=== PATIENT | female | born 1985 | race Caucasian/White ===

== ENCOUNTER 2019-12-31 12:34 | Outpatient (RCR) | payer OTHER, SELFPAY ==
[2019-12-17 17:07] VITALS: BP 121/63; PULSE 80
[2019-12-21 13:21] VITALS: BP 122/57; PULSE 76
[2019-12-28 08:06] VITALS: BP 122/64; PULSE 78
[2019-12-31 13:05] VITALS: BP 125/68; PULSE 90
== END 2020-01-04 08:03 | disposition home or self-care (01) ==
LOC: ANHOBOP 12:34
PROVIDERS: Family Provider Obstetrics & Gynecology; Visit Provider Obstetrics & Gynecology
DX: O24.419 Gestational diabetes mellitus in pregnancy, unspecified control (principal); Z3A.34 34 weeks gestation of pregnancy; Z3A.35 35 weeks gestation of pregnancy; Z3A.36 36 weeks gestation of pregnancy
CPT/HCPCS: 59025

== ENCOUNTER 2020-01-02 10:40 | Outpatient (CLI) | payer OTHER, SELFPAY ==
[2020-01-02 10:58] LABS: Hematocrit 37.6 % (37.0-47.0); Hemoglobin 12.6 g/dL (12.0-15.0); Mean Corpuscular HGB Conc 33.5 g/dl (32-36); Mean Corpuscular Hemoglobin 31.5 pg (26-34); Mean Platelet Volume 10.6 fl (7.4-10.4); Platelet Count Result 303 k/mm3 (150-375); Red Cell Distribution Width 12.6 % (11.5-14.5)
[2020-01-04 06:53] LABS: Rapid Plasma Reagin Non-Reactive (NonReactive)
== END 2020-01-02 10:41 | disposition home or self-care (01) ==
PROVIDERS: Visit Provider Obstetrics & Gynecology
DX: Z01.818 Encounter for other preprocedural examination (principal)
CPT/HCPCS: 36415; 85027; 86592; 86850; 86900; 86901

== ENCOUNTER 2020-01-04 05:40 | Inpatient (IN) | payer OTHER, SELFPAY ==
[2020-01-04] VITALS (48 sets, daily range): BP systolic 64–127; BP diastolic 39–78; PULSE 59–92; RESP 16–20; TEMP 36.3–37.5; O2SAT 98–100; BMI 34.5
[2020-01-04] MEDS: LACTATED RINGERS 1,000 ML 125 ML IV CONT (06:20)
--- NOTE | 2020-01-04 06:38 | LDADM ---
This patient, Maria R Moraes, was admitted to Labor/Delivery/Recovery 120 on 01/04/20 at 05:40. Plans for labor, pain management and were discussed with patient. Patient/family oriented to hospital policies and general routines including ID bracelet, bed and alarms, visiting hours, pain management, procedures, bathroom and other care routines, personal items, smoking policy, room service/diet and guest tray routines, infant security routines, and visiting hours. Patient/Family are encouraged to report perceived risks to care and to ask questions if they do not understand what they are told or what they should do. See OBIX for further documentation.
[2020-01-04 06:49] LABS: Glucose Point of Care 88 (65-105)
[2020-01-04] MEDS: LACTATED RINGERS 1,000 ML 999 ML IV CONT (07:09)
--- NOTE | 2020-01-04 07:09 | WPDANESEPPF ---
Anes - Initial Pre Proc Eval Procedure: Operation Date: 01/04/20 07:30 Proposed Procedures p Repeat Section with Bilateral Tubal Ligation - Frankie Benedict MD Date/Time: 01/04/20 07:09 Surgeon: Frankie Benedict MD Pre Op Diagnosis: C section Patient Data Age: 34 Gender: F Height: 5 ft 8 in Weight: 103 kg Last Vital Signs Temp 37.5 C 01/04/20 06:45 Pulse 78 01/04/20 06:31 BP 110/64 01/04/20 06:31 Allergies Allergy/AdvReac Type Severity Reaction Status Date / Time adhesive Allergy Intermediate RASH Verified 05/04/18 18:21 adhesive tape Allergy Mild Verified 05/04/18 18:21 nabumetone Allergy Mild FACIAL Verified 05/04/18 18:21 SWELLING Home Medications Medication Instructions Recorded Confirmed Type PNV cmb#95-ferrous fumarate-FA 1 tablet PO DAILY 12/31/19 12/31/19 History [] clindamycin HCl 300 mg PO Q6H 12/31/19 12/31/19 History glyburide 5 mg PO DAILY 12/31/19 12/31/19 History Laboratory Tests 01/04/20 06:30 POC Capillary Glucose 88 mg/dl mg/dl (65-105) Patient hx anesthesia problems: post op nausea/vomiting Family hx anesthesia problems: none PMFSH Past Medical History Medical History (Updated 01/04/20 @ 07:09 by Carlos Manuel Avila MD) Diabetes Family History Family History Mother Hypertension Father Diabetes mellitus Social History Social History Smoking packs per day: 1 Smoking cigarettes per day: 20.0 Years smoked: 15 Smoking pack-years: 15.00 Smoking status: Current every day smoker Tobacco type: cigarettes Second hand tobacco smoke exposure: Yes Substance use: never Gender identity (if verbalized by the patient): Female Spiritual care concerns: No Anes - Eval Final PreProcedure Day of Procedure 01/04/20 07:09 Patient weight: obese Heart: regular rate and rhythm Lungs: decreased breath sounds Airway: Mallampati scale class II Neurological: alert and oriented Last oral intake: >/= 8 hours ASA classification: III Emergent: no Anesthetic plan: proceed Anesthesia type and monitoring: regional spinal and standard monitoring Informed Consent: The patient's anesthetic plan and its attendant risks and benefits were discussed with the patient/family/POA. Questions were solicited and answers provided to the satisfaction of the patient/family/POA.
--- NOTE | 2020-01-04 07:26 | P.HP_ITS ---
H&P: HPI History of Present Illness Chief complaint: C section Narrative: Maria R Moraes is a 34 year old female 003 presents for repeat delivery. Also desires tubal ligation for permanent sterilization. care uncomplicated though she does have trisomy 21 infant and growth restriction both which have been comanaged with Maternal- Medicine at [facility]. Last Dopplers were performed Saturday did show some resistance but no need to intervene at that time. Review of Systems Review of Systems: All systems reviewed & are unremarkable except as noted in HPI and below PMFSH Past Medical History Medical History (Updated 01/04/20 @ 07:29 by Frankie Benedict MD) Diabetes Family History Family History Mother Hypertension Father Diabetes mellitus Social History Social History Smoking packs per day: 1 Smoking cigarettes per day: 20.0 Years smoked: 15 Smoking pack-years: 15.00 Smoking status: Current every day smoker Tobacco type: cigarettes Second hand tobacco smoke exposure: Yes Substance use: never Gender identity (if verbalized by the patient): Female Spiritual care concerns: No Meds Home Medications and Allergies Home Medications Medication Instructions Recorded Confirmed Type PNV cmb#95-ferrous fumarate-FA 1 tablet PO DAILY 12/31/19 12/31/19 History [] clindamycin HCl 300 mg PO Q6H 12/31/19 12/31/19 History glyburide 5 mg PO DAILY 12/31/19 12/31/19 History Allergies Allergy/AdvReac Type Severity Reaction Status Date / Time adhesive Allergy Intermediate RASH Verified 05/04/18 18:21 adhesive tape Allergy Mild Verified 05/04/18 18:21 nabumetone Allergy Mild FACIAL Verified 05/04/18 18:21 SWELLING Vital Signs Vital Signs - 24 hr 01/04/20 06:22 01/04/20 06:31 01/04/20 06:45 Temperature 37.5 C Pulse Rate 80 78 Blood Pressure 123/78 110/64 Exam Const: General: no acute distress Resp: Auscultation: clear to auscultation bilaterally Cardio: Rate: regular rate Rhythm: regular rhythm GI: Other: Fundal height 36cm. heart tones 130 and reactive. Assessment and Plan Assessment and plan (1) Term : Code(s): Z34.90 - Encounter for supervision of normal , unspecified, unspecified trimester Status: Acute (2) Encounter for sterilization: Code(s): Z30.2 - Encounter for sterilization Status: Acute Additional Plan Proceed with repeat low transverse section as well as bilateral tubal ligation.
[2020-01-04] MEDS: ceFAZolin 2 GM/D5W 50 ML 2 GM/50 ML BAG IVPB (07:32)
--- NOTE | 2020-01-04 08:37 | PM.OBPRVD ---
OB - Delivery Note Procedure Procedure: Procedures Operation Date: 01/04/20 07:30 Actual Procedures Side Surgeon p Section Frankie Benedict MD events: Gestational Diabetes and Placental Insufficiency Route of delivery: other (BTL) Specimen: Yes Estimated blood loss (mL): 550 Anesthesia type: Spinal Disposition: PACU Complications: During the procedure there was a moderate amount of blood-tinged fluid which was draining in the cul-de-sac. To be certain that this was not bladder injury with drainage of blood-tinged urine the bladder was backfilled with diet field fluid which did show good expansion of the bladder with no spillage. Bladder was then drained. Narrative: Patient was prepped and draped in usual manner for this procedure. Pfannenstiel incision was made carried down to the fascia extended bilaterally the length of the skin incision. Superiorly and inferiorly dissected away from the rectus muscles which were then bluntly dissected and the peritoneum was entered. Bladder flap was developed without difficulty. Uterus scored with clear fluid noted extended bilaterally the length of the lower segment and vertex was delivered. Rest of baby was delivered without difficulty. Cord was clamped and cut baby was passed off the operative field. Placenta removed manually and cavity was cleared of membranes and clots. Uterine incision was closed using 0 Monocryl running interlocking manner with good approximation hemostasis noted. The bilaterally fallopian tubes were grasped and doubly ligated using 0 plain suture. Specimen of tube was removed bilaterally. Stumps were hemostatic and intact. Uterus was turned the abdomen and again noted to be hemostatic and intact. Gutters were cleared of serosanguineous fluid and clots. This point the oozing as noted above was noted and about bladder was back filled. Once this was complete the fascia was approximated using 0 Vicryl from left angle midline right able midline subcutaneous tissues approximated 0 plain suture and skin was approximated using wide jon. Patient are procedure well sent to recovery room in stable condition. [place] Baby Weeks of gestation at delivery: 37 gender: Female Weight (pounds): 6 Weight (ounces): 0 score one minute: 8 score five minutes: 9
[2020-01-04] MEDS: MORPHINE SULFATE 2 MG/ML INJ 3 MG IV PUSH ×3 (09:04→10:39)
[2020-01-04] MEDS: OXYTOCIN 30 UNITS/NS 500 ML 30 UNITS/500 ML BAG 125 UNITS IV CONT (09:19)
--- NOTE | 2020-01-04 11:07 | PC.NURSE ---
Patient transferred to post room # 282 via stretcher. Support person present. Oriented to unit, room, information board, rooming in, admission packet and security measures. Patient verbalizes understanding.
--- NOTE | 2020-01-04 11:50 | PC.NURSE ---
Mother called out for assist with feeding. Mother states she attempted with other children without success. Reviewed infant feeding cues, frequencies, duration of feedings, feeding elimination flow sheet, and signs of adequate intake. Demonstrated stimulation techniques to wake infant for feeding. Assisted with to breast. Reviewed positioning/alignment in cross cradle, holding breast in U hold and guided asymmetrical latch on. Discussed rational for each. Infant was able to latch correctly. Infant nursed eagerly, with steady draws and frequent swallowing noted. Reviewed signs of a correct latch, effective nursing and suck swallow ratio. Infant was on and off several times, would eagerly latch. Nipple care reviewed. Instructed mother to call out for RN assistance if she is unable to latch for feeding or she has discomfort with nursing. Instructed feeding should be initiated three hours from start of last feeding or if feeding cues are noted before. Mother voiced understanding of information shared.
[2020-01-04] MEDS: CLINDAMYCIN HCL 150 MG CAP 300 MG PO ×3 (14:01→23:23)
[2020-01-04] MEDS: KETOROLAC 30 MG/ML VIAL (*BKC) IV PUSH (14:03)
[2020-01-04] MEDS: SIMETHICONE 80 MG TAB.CHEW PO ×2 (14:03→16:57)
[2020-01-04] MEDS: DEXTROSE 5%/0.45% SOD CHL 1,000 ML 125 ML IV CONT (14:03)
[2020-01-04] MEDS: DOCUSATE SODIUM 100 MG CAPSULE PO (16:56)
[2020-01-04] MEDS: IBUPROFEN 600 MG TABLET PO (21:50)
[2020-01-05] MEDS: IBUPROFEN 600 MG TABLET PO ×3 (03:48→19:09)
[2020-01-05 04:30] VITALS: BP 96/63; PULSE 79; RESP 18; TEMP 36.9
[2020-01-05 05:28] LABS: Basophils Percent Auto 0.3 % (0.2-1.2); Eosinophils Absolute Auto 0.1 K/mm3 (0-0.3); Eosinophils Percent Auto 1.3 % (0-4.4); Hematocrit 31.9 % (37.0-47.0); Hemoglobin 10.6 g/dL (12.0-15.0); Immature Granulocyte Absolute 0.05 K/mm3 (0.00-0.031); Immature Granulocyte Percent A 0.5 % (0-0.5); Lymphocytes Absolute Auto 1.21 K/mm3 (0.9-3.2); Lymphocytes Percent Auto 12.1 % (18.3-44.2); Mean Corpuscular HGB Conc 33.2 g/dl (32-36); Mean Corpuscular Hemoglobin 31.3 pg (26-34); Mean Corpuscular Volume 94.1 fl (80-100); Mean Platelet Volume 11.1 fl (7.4-10.4); Monocytes Absolute Auto 0.7 K/mm3 (0.1-0.6); Monocytes Percent Auto 6.9 % (2.6-8.5); Neutrophils Absolute Auto 7.9 K/mm3 (1.3-6.7); Neutrophils Percent Auto 78.9 % (45.5-73.1); Platelet Count Result 280 k/mm3 (150-375); Red Blood Count 3.39 M/mm3 (4.2-5.4)
[2020-01-05] MEDS: MULTIVIT/MIN/PREN/FOL AC/IRON TABLET 1 TAB PO (07:12)
[2020-01-05] MEDS: CLINDAMYCIN HCL 150 MG CAP 300 MG PO ×3 (07:12→19:09)
[2020-01-05] MEDS: DOCUSATE SODIUM 100 MG CAPSULE PO ×2 (07:12→19:10)
[2020-01-05 07:35] VITALS: BP 108/58; PULSE 71; RESP 18; TEMP 36.8; O2SAT 98
--- NOTE | 2020-01-05 11:39 | PM.OBDSVD ---
DS: Diagnosis Admitting Diagnosis Admitting Diagnosis: Encounter for supervision of normal , unspecified, unspecified trimester OB - DS: Summary OB Procedures : None OB Procedures Intrapartum: and Tubal ligation OB Procedures: : None Peripartum Data Procedures: Procedures Operation Date: 01/04/20 07:30 Actual Procedures Side Surgeon p Section Frankie Benedict MD Time Spent with Patient Time attestation: Total time spent providing and/or coordinating discharge services: DS: Data Data Completed and Pending Pending studies at discharge: Pending at discharge 01/04/20 07:49 Surgical [PTH] Routine Surgical [PTH] Routine Labs on day of discharge: Labs from last 24 hours 01/05/20 05:07 WBC 10.0 RBC 3.39 L Hgb 10.6 L Hct 31.9 L MCV 94.1 MCH 31.3 MCHC 33.2 RDW 13.0 Plt Count 280 MPV 11.1 H Immature Gran % (Auto) 0.5 Neut % (Auto) 78.9 H Lymph % (Auto) 12.1 L [place] % (Auto) 6.9 Eos % (Auto) 1.3 Baso % (Auto) 0.3 Lymph # (Auto) 1.21 [place] # (Auto) 0.7 H Eos # (Auto) 0.1 Baso # (Auto) 0.0 Abs Immat Gran (auto) 0.05 H Absolute Neuts (auto) 7.9 H Absolute Nucleated RBC 0.0 Nucleated RBC % 0.0 Discharge Plan Discharge Discharging Clinician: Frankie Benedict Patient Disposition: Home, Self-Care Activity: as tolerated Diet: as tolerated Wound Care Instructions: incision open to air Discharge Instructions: office saturday for staple removal Patient Instructions: Antibiotic Form Stand Alone Forms: General Discharge Information Follow-up/Referrals: Frankie Benedict MD [Physician] - 3 Weeks Discharge Medications: New hydrocodone-acetaminophen 5-325 mg Tablet 1 tab PO Q3H PRN (Reason: Moderate Pain (4-6)) Qty: 20 RF: 0 ibuprofen 600 mg Tablet 600 mg PO Q6H PRN (Reason: Cramping) Qty: 30 RF: 0 Continued clindamycin HCl 300 mg Capsule 300 mg PO Q6H RF: 0 PNV cmb#95-ferrous fumarate-FA [] 28 mg iron- 800 mcg Tablet 1 tablet PO DAILY RF: 0 Discontinued glyburide 5 mg Tablet 5 mg PO DAILY RF: 0 Date of admission: 01/04/20 05:40 Primary Care Provider: UNKNOWN,DOCTOR Admitting Provider: Frankie Benedict Attending physician on admission: Frankie Benedict
--- NOTE | 2020-01-05 12:57 | WPDANLDNPN2 ---
Anes-Prog Note L&D-Neuraxial Date/Time: 01/05/20 12:57 Neuraxial medications: intrathecal PF morphine Opiod-related complaints: none Patient feedback: Patient satisfied with post-operative pain management.
--- NOTE | 2020-01-05 12:58 | WPDANLDPN2 ---
Anes-Prog Note L&D Date/Time: 01/05/20 12:58 Comfortable throughout: section Neuraxial method: spinal Epidural/Spinal procedure site: clean & non-tender Neuro status: Neuro function grossly intact. Cardiovascular status: normal Respiratory status: normal Airway patency: baseline Mental status: baseline Post-Op hydration status: normal Vital Signs: Last Vital Signs Temp 36.8 C 01/05/20 07:35 Pulse 71 01/05/20 07:35 Resp 18 01/05/20 07:35 BP 108/58 L 01/05/20 07:35 Pulse Ox 98 01/05/20 07:35 I/O: Intake & Output 01/04/20 01/05/20 01/05/20 23:59 07:59 15:59 Intake Total 1870 420 Output Total 540 1900 Balance 1330 -1480 Post-procedural complaints: none Patient feedback: Patient satisfied with anesthetic care.
[2020-01-05 19:40] VITALS: BP 121/73; PULSE 80; RESP 12; TEMP 37.2
[2020-01-06] MEDS: CLINDAMYCIN HCL 150 MG CAP 300 MG PO ×3 (01:31→12:28)
[2020-01-06] MEDS: IBUPROFEN 600 MG TABLET PO ×2 (01:31→09:00)
[2020-01-06 08:05] VITALS: BP 116/64; PULSE 82; RESP 18; TEMP 37.3; O2SAT 99
[2020-01-06] MEDS: SIMETHICONE 80 MG TAB.CHEW PO ×2 (08:59→12:29)
[2020-01-06] MEDS: DOCUSATE SODIUM 100 MG CAPSULE PO (08:59)
[2020-01-06 09:00] VITALS: PULSE 82; RESP 18; O2SAT 99
[2020-01-06] MEDS: MULTIVIT/MIN/PREN/FOL AC/IRON TABLET 1 TAB PO (09:00)
--- NOTE | 2020-01-06 09:00 | PC.NURSE ---
PT introductions made and plan of care discussed per post op c section, pain management, breast feeding, daily care activities and pending discharge to home. PT verbalized understanding of such care.
--- NOTE | 2020-01-06 10:40 | PC.NURSE ---
Consult with pt., mother reports she is putting infant to breast for most feedings and will then supplement. Mother's plans are to breast and formula feed once home. Mother will begin taking medications for arthritis within a few weeks and both medications are not recommended for . Mother is able to independently latch infant with appropriate positioning/alignment. She denies any nipple discomfort, is feeding as required and waking infant to feed if needed. Infant has had several effective feedings followed with supplementation in the past 24 hours, and is currently meeting outcomes for weight, output, jaundice and feeding frequencies. Mother states she feels confident to continue her current feeding plan of breast and bottle at home. Reviewed transition to breast milk, signs of adequate intake, and engorgement/relief. Instructed to call ICP if intake/output less than required. Reviewed regular medications mother is taking. Information provided per Padmini. Reviewed community resources on the [facility] website and in the Mom/Baby guide. Information on outpatient services provided. Mother has no further questions at this time.
[2020-01-06] MEDS: TETANUS,DIPHTHERIA,AC PERTUSSIS ADULT (0.5 ML) BOOSTRIX IM (12:29)
--- NOTE | 2020-01-06 13:00 | PC.NURSE ---
Pt received discharge instructed per protocol. PT verbalized understanding of such instructed.
--- NOTE | 2020-01-06 13:37 | PC.NURSE ---
PT discharged to home ambulatory accompanied by significant other and to waiting car. Follow up appointments confirmed.
[2020-01-08 10:11] VITALS: BP 129/75; PULSE 85; RESP 20; TEMP 37.1; O2SAT 98
--- NOTE | 2020-01-12 09:04 | PM.OBDSVD ---
DS: Diagnosis Admitting Diagnosis Admitting Diagnosis: Encounter for supervision of normal , unspecified, third trimester OB - DS: Summary OB Procedures : Amniocentesis, NST and Ultrasound OB Procedures Intrapartum: OB Procedures: : None Peripartum Data Procedures: Procedures Operation Date: 01/04/20 07:30 Actual Procedures Side Surgeon p Section Frankie Benedict MD Time Spent with Patient Time attestation: Total time spent providing and/or coordinating discharge services: DS: Data Data Completed and Pending Completed studies during hospitalization: Pending at discharge 01/04/20 07:49 Surgical [PTH] Routine Surgical [PTH] Routine Discharge Plan Discharge Consulting providers: Carlos Manuel Avila Discharging Clinician: Frankie Benedict Patient Disposition: Home, Self-Care Activity: as tolerated Diet: as tolerated Wound Care Instructions: incision open to air Discharge Instructions: Education: Mom and Baby Guide Given to: Mother Follow-Up: Call your delivering provider's office for an appointment to be seen in: 3 weeks Mom and baby should come to the [facility] for the follow-up appointment. Appointment Date/Time: January 08, 2020 at 10:00 am What to expect at your follow-up visit: Blood Pressure Check Call [phone] if you are unable to keep your appointment time. BREAST CARE: 1. Wear a snug supportive bra. 2. For engorgement discomfort: Breast Feeding: A. Apply warm moist washcloths B. Express milk as needed to relieve engorgement C. Wear loose clothing Bottle Feeding: A. May apply ice packs 3. For sore nipples: A. Identify correct latch-on B. Apply warm moist washcloths before and after nursing C. Air dry nipples after nursing D. May apply Lansinoh cream to nipples ABDOMINAL INCISION: (if applicable) 1. Allow incision to air dry 2. Do NOT use lotions for powders on your incision 3. When showering, allow soap and water to run over the incision, but do not wash incision PERINEAL CARE: 1. Until bleeding stops, use your delores bottle after urinating 2. Change your pad frequently throughout the day 3.. No tub baths until seen by your physician - You may shower ACTIVITY: 1. Rest as much as possible. 2. Do not exercise or lift anything heavier than your baby (such as laundry or other children.) 3. Avoid stairs or driving as much as possible. 4. Do not put anything into the vagina. No douching, tampons, or sexual activity until seen by physician. NOTIFY PHYSICIAN IF YOU HAVE ANY QUESTIONS OR IF ANY OF THE FOLLOWING SYMPTOMS OCCUR: 1. If your incision becomes red, swollen, or more painful than what you have experienced in the hospital. 2. If your vaginal bleeding becomes foul smelling. 3. If your vaginal bleeding becomes more heavy than a period or if your bleeding changes from pink to bright red. However, you may pass an occasional walnut-sized clot once or twice for the first week . 4. If you experience a sharp, shooting pain in you calves. 5. If you discover a hard, reddened area on your breast or if you experience flu-like symptoms. 6. Call for temp 100.4 or greater DIET: 1. Eat regular, well-balanced meals. 2. Drink plenty of fluids daily. If , drink to thirst.office saturday for staple removal Patient Instructions: Antibiotic Form Stand Alone Forms: General Discharge Information Follow-up/Referrals: Frankie Benedict MD [Physician] - 3 Weeks Discharge Medications: New hydrocodone-acetaminophen 5-325 mg Tablet 1 tab PO Q3H PRN (Reason: Moderate Pain (4-6)) Qty: 20 RF: 0 ibuprofen 600 mg Tablet 600 mg PO Q6H PRN (Reason: Cramping) Qty: 30 RF: 0 Continued clindamycin HCl 300 mg Capsule 300 mg PO Q6H RF: 0 PNV cmb#95-ferrous fumarate-FA [
== END 2020-01-06 13:37 | disposition home or self-care (01) | DRG 540 ==
LOC: ANHLDR 05:47 → ANHOB2 11:11
PROVIDERS: Admitting Provider Obstetrics & Gynecology; Visit Provider Obstetrics & Gynecology
PROC: 10D00Z1 Extraction of Products of Conception, Low, Open Approach (ICD-10-PCS; CPT 59514; principal; 2020-01-04 07:30)
DX: O34.211 Maternal care for low transverse scar from previous cesarean delivery (principal); Z3A.37 37 weeks gestation of pregnancy; Z37.0 Single live birth; Z30.2 Encounter for sterilization; Z23 Encounter for immunization; F17.210 Nicotine dependence, cigarettes, uncomplicated; O99.333 Smoking (tobacco) complicating pregnancy, third trimester; O24.429 Gestational diabetes mellitus in childbirth, unspecified control; O99.214 Obesity complicating childbirth; E66.9 Obesity, unspecified
CPT/HCPCS: 36415; 85025; 88302; 88307; 90715; A9270; J0690; J1885; J2001; J2270; J2274; J2405; J2590; J7030; J7120; Q9968

== ENCOUNTER 2020-12-21 10:38 | Outpatient (CLI) | payer OTHER, SELFPAY ==
--- NOTE | ~2020-12-21 | MM_ITS ---
EXAMINATION: MM screening jeromy BI w morales HISTORY: Screening TECHNIQUE: Craniocaudal and mediolateral oblique 3-D tomosynthesis images were obtained and synthetic 2-D images were generated. CAD analysis was submitted and interpreted. COMPARISON: No prior mammogram is available for comparison at this institution. BREAST PARENCHYMAL COMPOSITION: There are scattered areas of fibroglandular density. FINDINGS: There is a benign-appearing radiolucent mass central aspect of the right breast. There is n o evidence of suspicious mass, calcification, or architectural distortion to suggest malignancy in ei ther breast. There has been no suspicious interval change. IMPRESSION: 1. No mammographic evidence of malignancy. 2. Recommend routine screening mammography in one year. BI-RADS Category 2: Benign finding(s). Reviewed, dictated and finalized at location A.
== END 2020-12-21 10:39 | disposition home or self-care (01) ==
LOC: ANHIMG 10:41
PROVIDERS: PCP Obstetrics & Gynecology; Visit Provider Obstetrics & Gynecology
DX: Z12.31 Encounter for screening mammogram for malignant neoplasm of breast (principal)
CPT/HCPCS: 77063; 77067

== ENCOUNTER 2022-11-20 12:51 | Outpatient (CLI) | payer OTHER, SELFPAY ==
[2022-11-20 13:18] LABS: Hematocrit 40.9 % (37.0-47.0); Hemoglobin 13.9 g/dL (12.0-15.0); Mean Corpuscular Hemoglobin 32.2 pg (26-34); Mean Corpuscular Volume 94.7 fl (80-100); Mean Platelet Volume 10.3 fl (7.4-10.4); Platelet Count Result 293 k/mm3 (150-375); Red Blood Count 4.32 M/mm3 (4.2-5.4); Red Cell Distribution Width 12.4 % (11.5-14.5); White Blood Count 8.4 K/mm3 (4.5-10.0)
== END 2022-11-20 12:52 | disposition home or self-care (01) ==
PROVIDERS: Visit Provider Obstetrics & Gynecology
DX: N92.1 Excessive and frequent menstruation with irregular cycle (principal); Z01.818 Encounter for other preprocedural examination
CPT/HCPCS: 36415; 85027

== ENCOUNTER 2022-11-22 00:23 | Day surgery (SDC) | payer OTHER, SELFPAY ==
[2022-11-12 09:48] VITALS: BMI 31.1
--- NOTE | 2022-11-12 10:04 | PC.NURSE ---
Report to the Outpatient Waiting Room, entrance under the green pavilion located off [facility], at time 0900 on date _11/22/22. Planned Procedure Time: 1100. Time changes happen often and if your time is changed the preop area will call you the afternoon before. - You and your visitor will be asked to self-screen and do not enter if you have any COVID symptoms. - Only one visitor is requested with a max of two and NO children visitors are allowed at this time. - The patient visitor may be requested to leave or wait in car when not with patient due to distancing restrictions. - A mask is optional within the hospital at this time. Patients may have clear liquids (water, carbonated beverages, clear teas, apple juice) until 3 hours prior to surgery with a maximum of 20 ounces. - No food from midnight until time of surgery - Infants may have breast milk until 4 hours before surgery, formula 6 hours prior to surgery. - Children will be allowed to drink immediately following surgery. If applicable, please bring a bottle or sippy cup to assist with drinking. Juice, water, soda, and popsicles are readily available. For infants on formula, please bring formula the day of surgery. Pacifiers are allowed. Take the following medications with a SIP of water the morning of surgery: n/a____ DO NOT STOP ANY OF YOUR OTHER PRESCRIPTION MEDICATIONS PRIOR TO SURGERY ?EXCEPT THE FOLLOWING Medications to discontinue per physician _n/a Date to take last dose Please no make-up, nail macanese, hairspray, perfume, deodorant, or body powder the day of surgery. No jewelry (including any body piercings) or valuables the day of surgery, leave them at home. Please take a shower or bath the night before, or the morning of, surgery with an antibacterial soap. Wear comfortable, loose fitting clothing. Children are encouraged to wear pajamas. - Jewelry must be removed prior to entering the operating room. Rings and piercings that are not removed may be cut off. - The hospital will not accept responsibility for valuables. - Please leave all valuables, including medications, at home the day of surgery. If you are going home after surgery, a licensed pile driver operator must drive you home. - NO public transportation without another adult if you receive anesthesia. - We recommend that an adult stay with you for 24 hours following discharge. - We also recommend that you do not drive, make important decision, drink alcoholic beverages, or take any drugs that were not prescribed by your health care provider for at least 24 hours after your discharge time. For Pediatric surgeries, we recommend two adults accompany the child home. Follow any additional instructions given to you from your surgeon. If you or anyone in your household have experienced Covid symptoms in the past week, please notify your surgeon or the nurse liaison at the phone number below for possible testing. Telephone instructions given to Lisa Moraes and asked if any additional questions and then verbalized understanding. Patient advised to call surgeon office or pre surgery nurse liaison [phone] if any additional questions.
--- NOTE | 2022-11-20 18:30 | PM.IMHP ---
H&P: HPI History of Present Illness Date/Time: 11/20/22 18:30 37-year-old female presents with complaints of menstrual cycles lasting 7-10 days with 3-5 days heavy with clotting cramping. Underwent section with tubal ligation proximally 3 years ago since that time her cycles have become steadily longer and heavier and more frequent. Is not to the point where it is interfering with her activities of daily living. 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 Hgsil +hpv 07/14/2018 + hpv Allergies Anxiety and depression Arthritis Arthritis Diabetes Gestational diabetes H/O lipoma High cholesterol HPV in female Surgical History Surgical History H/O section (~2019) H/O foot surgery H/O LEEP 03/03/15 HGSIL LAURA III 10/16/18 HGSIL margin free of involvement H/O right knee surgery H/O tubal ligation History of 11/04/01 primary c/s lack of progress 09/14/16 rpt c/s--gestational diabetes, baby tongue-tied 03/14/18 rpt c/s 01/04/20 rpt c/s History of colposcopy with cervical biopsy 201102/23/15 HGSIL History of foot surgery 2012 (R) foot History of knee surgery 2002 (R) knee 2004 (R) knee 2006 (R) knee Family History Family History Grandparent Family history of arthritis Family history of malignant neoplasm of ovary Family history of heart disease in male family member before age 55 maternal grandfather paternal grandfather Hypertension maternal grandfather paternal grandfather Diabetes mellitus maternal grandfather paternal grandfather Cerebrovascular accident maternal grandfather paternal grandfather Malignant tumor of ovary paternal grandmother Mother Family history of arthritis Hypertension Diabetes mellitus Other Family history of malignant neoplasm of breast maternal aunt Mother Hypertension COPD (chronic obstructive pulmonary disease) Father Diabetes mellitus Hypertension Grandparent Muscular degeneration Grandparent Diabetes mellitus Grandparent Alzheimer disease Grandparent Cerebrovascular accident Diabetes mellitus Acute myocardial infarction Other Breast cancer Social History Social History Smoking packs per day: 1 Smoking cigarettes per day: 20.0 Years smoked: 20 Smoking pack-years: 20.00 Smoking status: Current every day smoker Tobacco type: cigarettes Second hand tobacco smoke exposure: Yes Alcohol intake: never Alcohol use details: 4 month Substance use: current Substance use type: marijuana Other substance usage details: gummie Last use: 11/11/22 Living arrangements: with family Additional living arrangements comments: 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
--- NOTE | 2022-11-22 07:32 | WPDHPUPDATE1 ---
History and Physical Update Update Date/Time: 11/22/22 07:32 History and Physical has been reviewed, including an updated exam of the patient. There are NO changes in the patient's condition. Risks, benefits, and alternatives have been discussed and questions answered. Patient agrees to proceed with procedure.
[2022-11-22] MEDS: ACETAMINOPHEN 500 MG TABLET 1000 MG PO (08:59)
[2022-11-22 09:10] VITALS: BP 129/85; PULSE 88; RESP 16; TEMP 37; O2SAT 100
--- NOTE | 2022-11-22 10:10 | WPDANESEPPF ---
Anes - Initial Pre Proc Eval Procedure: Operation Date: 11/22/22 11:00 Proposed Procedures p Hysteroscopy, Dilation and Curettage, Carol Endometrial Ablation - Frankie Benedict MD Date/Time: 11/22/22 10:10 Surgeon: Frankie Benedict MD Pre Op Diagnosis: menometrorrhagia Patient Data Age: 37 Gender: F Height: 1.73 m Weight: 89 kg Last Vital Signs Temp 37.0 C 11/22/22 09:10 Pulse 88 11/22/22 09:10 Resp 16 11/22/22 09:10 BP 129/85 11/22/22 09:10 Pulse Ox 100 11/22/22 09:10 O2 Del Method Room Air 11/22/22 09:10 Allergies Allergy/AdvReac Type Severity Reaction Status Date / Time nabumetone Allergy Intermediate Swelling Verified 11/22/22 08:57 adhesive tape Allergy Mild Unknown Verified 11/22/22 08:57 Home Medications Medication Instructions Recorded Confirmed Type No Home Medications 04/12/20 11/12/22 History Patient hx anesthesia problems: post op nausea/vomiting Family hx anesthesia problems: post op nausea/vomiting Results Review: All pre-operative results and documents have been reviewed as part of the pre-operative evaluation. [facility] Past Medical History Medical History Abnormal Pap smear of cervix 01/20/15 hgsil (+) HPV-05/31/2017 Hgsil +hpv 07/14/2018 + hpv Allergies Anxiety and depression Arthritis Arthritis Diabetes Gestational diabetes H/O lipoma High cholesterol HPV in female Surgical History Surgical History H/O section (~2019) H/O foot surgery H/O LEEP 03/03/15 HGSIL LAURA III 10/16/18 HGSIL margin free of involvement H/O right knee surgery H/O tubal ligation History of 11/04/01 primary c/s lack of progress 09/14/16 rpt c/s--gestational diabetes, baby tongue-tied 03/14/18 rpt c/s 01/04/20 rpt c/s History of colposcopy with cervical biopsy 201102/23/15 HGSIL History of foot surgery 2013 (R) foot History of knee surgery 2002 (R) knee 2004 (R) knee 2006 (R) knee Family History Family History Grandparent Family history of arthritis Family history of malignant neoplasm of ovary Family history of heart disease in male family member before age 55 maternal grandfather paternal grandfather Hypertension maternal grandfather paternal grandfather Diabetes mellitus maternal grandfather paternal grandfather Cerebrovascular accident maternal grandfather paternal grandfather Malignant tumor of ovary paternal grandmother Mother Family history of arthritis Hypertension Diabetes mellitus Other Family history of malignant neoplasm of breast maternal aunt Mother Hypertension COPD (chronic obstructive pulmonary disease) Father Diabetes mellitus Hypertension Grandparent Muscular degeneration Grandparent Diabetes mellitus Grandparent Alzheimer disease Grandparent Cerebrovascular accident Diabetes mellitus Acute myocardial infarction Other Breast cancer Social History Social History Smoking packs per day: 1 Smoking cigarettes per day: 20.0 Years smoked: 20 Smoking pack-years: 20.00 Smoking status: Current every day smoker Tobacco type: cigarettes Second hand tobacco smoke exposure: Yes Alcohol intake: never Alcohol use details: 4 month Substance use: current Substance use type: marijuana Other substance usage details: gummie Last use: 11/11/22 Living arrangements: with family Additional living arrangements comments: 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
[2022-11-22] MEDS: SCOPOLAMINE 1.5 MG PATCH TRANSDERM (10:17)
[2022-11-22] MEDS: LACTATED RINGERS 1,000 ML 30 ML IV CONT (10:32)
--- NOTE | 2022-11-22 11:57 | W.PM.PROC2 ---
Procedure Note - Detailed Date of Procedure 11/22/22 Pre-op Diagnosis menometrorrhagia Post-op Diagnosis Same Procedure Performed 1. Hysteroscopy with uterine curettings 2. endometrial ablation Surgeon Frankie Benedict MD Anesthesia MAC Findings Slightly thickened endometrial cavity Description of Procedure Patient prepped in usual manner for this procedure. Hysteroscope was placed with notation as above, no significant abnormalities. Curettings were obtained and the Carol instrument was placed. Cavity assessment performed and instrument was activated. At the end of the cycle hysteroscopic exam revealed good destruction throughout. Patient are procedure well and was sent to recovery room. Estimated Blood Loss 10 Drains No Packing No Pathology Yes Complications No immediate complications Condition Stable Disposition PACU [facility] Billing Surgery - Charge Forward: Surgery Billing
[2022-11-22 12:00] VITALS: BP 125/72; PULSE 77; RESP 14; O2SAT 100
[2022-11-22 12:30] VITALS: BP 127/66; PULSE 86; RESP 20
[2022-11-22] MEDS: oxyCODONE HCL (*CRX) 5 MG TAB IR PO (12:30)
[2022-11-22 13:00] VITALS: BP 123/78; PULSE 72; RESP 20
== END 2022-11-22 13:11 | disposition home or self-care (01) ==
PROVIDERS: Visit Provider Obstetrics & Gynecology
PROC: 0U5B8ZZ Destruction of Endometrium, Via Natural or Artificial Opening Endoscopic (ICD-10-PCS; CPT 58563; principal; 2022-11-22 11:00)
DX: N92.1 Excessive and frequent menstruation with irregular cycle (principal); N94.6 Dysmenorrhea, unspecified; F17.210 Nicotine dependence, cigarettes, uncomplicated; F12.90 Cannabis use, unspecified, uncomplicated
CPT/HCPCS: 58563; 88305; A9270; J2001; J2250; J2704; J3010; J7120